=== PATIENT | male | born 1950 | race Caucasian/White ===

== ENCOUNTER 2016-07-18 09:00 | Emergency (ER) | payer BC ==
[2016-07-18] MEDS ORDERED: PROGRAF0.5 M1 PO (09:41)
[2016-07-18] MEDS ORDERED: VIBRAMYCIN100 M1 PO (09:42)
[2016-07-18] MEDS ORDERED: METAMUCIL0.52 G1 PO (09:42)
[2016-07-18] MEDS ORDERED: VITAMIN D32000 UNI3 PO (09:42)
[2016-07-18] MEDS ORDERED: METOPROLOL TART25 M1 PO (09:43)
[2016-07-18] MEDS ORDERED: PEPCID40 M1 PO (09:43)
[2016-07-18] MEDS ORDERED: LIPITOR40 M1 PO (09:44)
[2016-07-18] MEDS ORDERED: SINGULAIR10 M1 PO (09:44)
[2016-07-18] MEDS ORDERED: ARAVA20 M1 PO (09:44)
[2016-07-18] MEDS ORDERED: ALREX5 M1 EACH EYE (09:45)
[2016-07-18] MEDS ORDERED: PREDNISONE5 M1 PO (09:47)
[2016-07-18] MEDS ORDERED: PREDNISONE10 M1 PO (09:49)
[2016-07-18] MEDS ORDERED: SYMBICORT 160-1 PUFF INH (09:50)
[2016-07-18] MEDS ORDERED: COUMADIN5 M2 PO ×2 (09:51→09:52)
[2016-07-18 10:43] LABS: BASO % 0.1 % (0-2); EOS % 0.2 % (0-7); HCT-HEMATOCRIT 31.3 % (36.0-53.5); HGB-HEMOGLOBIN 9.9 gm/dl (13.5-17.0); IMMATURE GRANULOCYTES ABSOLUTE 0.12 tho/cmm (0-0.03); IMMATURE GRANULOCYTES PERCENT 0.8 % (0-0.3); LYMPH % 4.9 % (20-45); LYMPH ABSOLUTE COUNT 0.7 tho/cmm (0.8-4.5); MCH (MEAN CORPUSCULAR HGB) 31.7 pg (28.0-32.0); MCHC MEAN CORPUSCULAR HGB CONC 31.6 % (32.0-36.0); MCV (MEAN CELL VOLUME) 100.3 fl (82.0-96.0); MEAN PLATELET VOLUME 9.4 cmc (9.4-12.4); MONO % 14.3 % (0-12); MONOCYTE ABSOLUTE COUNT 2.1 tho/cmm (0.0-1.2); NEUTROPHIL ABSOLUTE COUNT 11.5 tho/cmm (1.6-8.0); NEUTROPHIL-AUTOMATED 11.5 tho/cmm (1.6-8.0); NEUTROPHILS % 79.7 % (40-80); PLATELET COUNT 404 tho/cmm (150-450); RED BLOOD COUNT 3.12 mil/cmm (4.40-5.70); RED CELL DISTRIBUTION WIDTH 14.6 % (12.4-16.4); WHITE BLOOD COUNT 14.4 tho/cmm (4.0-10.0)
[2016-07-18 10:54] LABS: ALB/GLOB RATIO 0.5 (0.8-2.0); ALBUMIN 2.3 g/dl (3.5-5.0); ALKALINE PHOSPHATASE 316 U/L (33-138); ALT/SGPT 22 U/L (12-78); ANION GAP 11 mmol/L (0-20); AST/SGOT 15 U/L (10-40); BILIRUBIN,TOTAL 0.5 mg/dl (0.0-1.5); BLOOD UREA NITROGEN 29 mg/dl (6-24); CALCIUM 9.6 mg/dl (8.5-10.5); CARBON DIOXIDE-VENOUS 27 mmol/L (22-32); CHLORIDE 108 mmol/l (96-110); CREATININE 1.13 mg/dl (0.60-1.30); GLUCOSE 88 mg/dL (70-110); POTASSIUM 4.3 mmol/L (3.7-5.1); SODIUM 142 mmol/L (135-145); eGFR VALUE FOR BLACK 80 mL/Min
[2016-07-18 11:26] LABS: PROTHROMBIN TIME 35.7 SECONDS (9.0-13.6)
== END 2016-07-18 12:06 ==
LOC: EDMED 09:00
PROVIDERS: Emergency Medicine
DX: S20.211A Contusion of right front wall of thorax, initial encounter (principal); S50.812A Abrasion of left forearm, initial encounter; R51 Headache; E78.00 Pure hypercholesterolemia, unspecified; N19 Unspecified kidney failure; Z86.718 Personal history of other venous thrombosis and embolism; Z94.0 Kidney transplant status; Z94.6 Bone transplant status; Z90.49 Acquired absence of other specified parts of digestive tract; W18.2XXA Fall in (into) shower or empty bathtub, initial encounter; Y92.009 Unspecified place in unspecified non-institutional (private) residence as the place of occurrence of the external cause

== ENCOUNTER 2016-07-22 14:34 | Inpatient (IN) | payer BC ==
[~2016-07-22 14:34] MED LIST: ALREX5 M1 EACH EYE; ARAVA20 M1 PO; COUMADIN5 M2 PO; LIPITOR40 M1 PO; METAMUCIL0.52 G1 PO; METOPROLOL TART25 M1 PO; PEPCID40 M1 PO; PREDNISONE10 M1 PO; PREDNISONE5 M1 PO; PROGRAF0.5 M1 PO; SINGULAIR10 M1 PO; SYMBICORT 160-1 PUFF INH; VIBRAMYCIN100 M1 PO; VITAMIN D32000 UNI3 PO
[2016-07-22 18:50] LABS: INR 3.2 INR (0.9-1.1); PROTHROMBIN TIME 38.7 SECONDS (9.0-13.6)
[2016-07-22 18:52] LABS: MAGNESIUM 1.9 mg/dl (1.8-2.6); PHOSPHOROUS 2.3 mg/dl (2.5-4.9)
[2016-07-23 06:08] LABS: HCT-HEMATOCRIT 27.2 % (36.0-53.5); HGB-HEMOGLOBIN 8.6 gm/dl (13.5-17.0); IMMATURE GRANULOCYTES ABSOLUTE 0.05 tho/cmm (0-0.03); IMMATURE GRANULOCYTES PERCENT 0.4 % (0-0.3); LYMPH % 4.8 % (20-45); LYMPH ABSOLUTE COUNT 0.6 tho/cmm (0.8-4.5); MCH (MEAN CORPUSCULAR HGB) 31.3 pg (28.0-32.0); MCHC MEAN CORPUSCULAR HGB CONC 31.6 % (32.0-36.0); MCV (MEAN CELL VOLUME) 98.9 fl (82.0-96.0); MEAN PLATELET VOLUME 9.2 cmc (9.4-12.4); MONOCYTE ABSOLUTE COUNT 0.5 tho/cmm (0.0-1.2); NEUTROPHILS % 90.8 % (40-80); PLATELET COUNT 329 tho/cmm (150-450); RED BLOOD COUNT 2.75 mil/cmm (4.40-5.70); RED CELL DISTRIBUTION WIDTH 14.8 % (12.4-16.4); WHITE BLOOD COUNT 12.1 tho/cmm (4.0-10.0)
[2016-07-23 06:12] LABS: INR 3.2 INR (0.9-1.1)
[2016-07-23 06:21] LABS: ANION GAP 13 mmol/L (0-20); BLOOD UREA NITROGEN 27 mg/dl (6-24); C-REACTIVE PROTEIN 9.4 mg/dl (0-0.9); CALCIUM 8.7 mg/dl (8.5-10.5); CARBON DIOXIDE-VENOUS 23 mmol/L (22-32); CHLORIDE 110 mmol/l (96-110); CREATININE 1.04 mg/dl (0.60-1.30); GLUCOSE 125 mg/dL (70-110); MAGNESIUM 1.9 mg/dl (1.8-2.6); POTASSIUM 4.6 mmol/L (3.7-5.1); SODIUM 141 mmol/L (135-145); eGFR VALUE FOR BLACK 88 mL/Min
[2016-07-23 08:37] LABS: ESR-ERYTHROCYTE SED RATE 39 mm/hr (0-20)
[2016-07-24 04:39] LABS: BASO % 0.1 % (0-2); HCT-HEMATOCRIT 25.8 % (36.0-53.5); IMMATURE GRANULOCYTES ABSOLUTE 0.11 tho/cmm (0-0.03); IMMATURE GRANULOCYTES PERCENT 0.6 % (0-0.3); LYMPH % 7.5 % (20-45); LYMPH ABSOLUTE COUNT 1.3 tho/cmm (0.8-4.5); MCH (MEAN CORPUSCULAR HGB) 30.8 pg (28.0-32.0); MCV (MEAN CELL VOLUME) 99.2 fl (82.0-96.0); MEAN PLATELET VOLUME 9.1 cmc (9.4-12.4); MONOCYTE ABSOLUTE COUNT 1.2 tho/cmm (0.0-1.2); NEUTROPHILS % 84.8 % (40-80); PLATELET COUNT 314 tho/cmm (150-450); RED CELL DISTRIBUTION WIDTH 14.8 % (12.4-16.4); WHITE BLOOD COUNT 17.6 tho/cmm (4.0-10.0)
[2016-07-24 04:49] LABS: INR 2.9 INR (0.9-1.1); PROTHROMBIN TIME 34.6 SECONDS (9.0-13.6)
[2016-07-24 05:00] LABS: ALB/GLOB RATIO 0.4 (0.8-2.0); ALBUMIN 1.7 g/dl (3.5-5.0); ALKALINE PHOSPHATASE 351 U/L (33-138); ALT/SGPT 13 U/L (12-78); ANION GAP 10 mmol/L (0-20); AST/SGOT 15 U/L (10-40); BILIRUBIN,TOTAL 0.2 mg/dl (0.0-1.5); BLOOD UREA NITROGEN 31 mg/dl (6-24); CALCIUM 8.5 mg/dl (8.5-10.5); CARBON DIOXIDE-VENOUS 24 mmol/L (22-32); CHLORIDE 112 mmol/l (96-110); CREATININE 1.05 mg/dl (0.60-1.30); GLUCOSE 98 mg/dL (70-110); POTASSIUM 4.3 mmol/L (3.7-5.1); SODIUM 142 mmol/L (135-145); eGFR VALUE FOR BLACK 87 mL/Min
[2016-07-24 06:57] LABS: URINE TOTAL PROTEIN-RANDOM 17.2 mg/dl (<11.8)
[2016-07-24 07:05] LABS: URINE PRT/CR RATIO 0.31 Ratio (0.0-0.20)
[2016-07-24] MEDS ORDERED: VALIUM10 M1 PO (14:24)
[2016-07-24] MEDS ORDERED: NORCO 5-325 TA1 EACH PO (14:24)
== END 2016-07-24 18:10 | DRG 103 ==
LOC: CAR1 14:34
PROVIDERS: Internal Medicine; Nurse Practitioner; ADMIT Hospitalist
PROC: 05HC33Z Insertion of Infusion Device into Left Basilic Vein, Percutaneous Approach (ICD-10-PCS; principal; 2016-07-22)
DX: R51 Headache (principal); D68.51 Activated protein C resistance; Z94.81 Bone marrow transplant status; Z94.0 Kidney transplant status; E88.09 Other disorders of plasma-protein metabolism, not elsewhere classified; D45 Polycythemia vera; I73.9 Peripheral vascular disease, unspecified; M89.9 Disorder of bone, unspecified; E78.5 Hyperlipidemia, unspecified; D64.9 Anemia, unspecified; Z86.14 Personal history of Methicillin resistant Staphylococcus aureus infection; Z85.51 Personal history of malignant neoplasm of bladder; Z86.718 Personal history of other venous thrombosis and embolism; Z96.642 Presence of left artificial hip joint; Z79.01 Long term (current) use of anticoagulants; Z79.899 Other long term (current) drug therapy
CPT/HCPCS: A9577; C1751; G8978-GP-CI; G8979-GP-CI; G8980-GP-CI; J7030; J7512; Q9967

== ENCOUNTER 2016-08-10 11:44 | Inpatient (IN) | payer BC ==
[~2016-08-10 11:44] MED LIST changes: +NORCO 5-325 TA1 EACH PO; +VALIUM10 M1 PO
[2016-08-10] MEDS ORDERED: ALBUTEROL2.5 MG/3 M INH (12:35)
[2016-08-10 13:11] LABS: BASO % 0.1 % (0-2); HCT-HEMATOCRIT 28.6 % (36.0-53.5); IMMATURE GRANULOCYTES PERCENT 1.8 % (0-0.3); LYMPH % 3.5 % (20-45); LYMPH ABSOLUTE COUNT 0.4 tho/cmm (0.8-4.5); MCH (MEAN CORPUSCULAR HGB) 30.3 pg (28.0-32.0); MCHC MEAN CORPUSCULAR HGB CONC 31.5 % (32.0-36.0); MCV (MEAN CELL VOLUME) 96.3 fl (82.0-96.0); MEAN PLATELET VOLUME 9.5 cmc (9.4-12.4); MONO % 7.6 % (0-12); MONOCYTE ABSOLUTE COUNT 0.9 tho/cmm (0.0-1.2); NEUTROPHIL ABSOLUTE COUNT 9.9 tho/cmm (1.6-8.0); NEUTROPHIL-AUTOMATED 9.9 tho/cmm (1.6-8.0); PLATELET COUNT 358 tho/cmm (150-450); RED BLOOD COUNT 2.97 mil/cmm (4.40-5.70); RED CELL DISTRIBUTION WIDTH 15.4 % (12.4-16.4); WHITE BLOOD COUNT 11.3 tho/cmm (4.0-10.0)
[2016-08-10 13:15] LABS: PROTHROMBIN TIME 61.5 SECONDS (9.0-13.6)
[2016-08-10 13:26] LABS: ALB/GLOB RATIO 0.3 (0.8-2.0); ALBUMIN 1.7 g/dl (3.5-5.0); ALT/SGPT 19 U/L (12-78); BILIRUBIN,TOTAL 0.4 mg/dl (0.0-1.5); BLOOD UREA NITROGEN 30 mg/dl (6-24); CALCIUM 9.1 mg/dl (8.5-10.5); CARBON DIOXIDE-VENOUS 24 mmol/L (22-32); CHLORIDE 101 mmol/l (96-110); CREATININE 1.17 mg/dl (0.60-1.30); GLUCOSE 170 mg/dL (70-110); SODIUM 136 mmol/L (135-145); eGFR VALUE FOR BLACK 76 mL/Min
[2016-08-10 13:27] LABS: ALKALINE PHOSPHATASE 588 U/L (33-138); ANION GAP 16 mmol/L (0-20); POTASSIUM 4.6 mmol/L (3.7-5.1)
[2016-08-10 13:28] LABS: AST/SGOT 27 U/L (10-40); MAGNESIUM 1.9 mg/dl (1.8-2.6)
[2016-08-10 13:33] LABS: ESR-ERYTHROCYTE SED RATE >140 mm/hr (0-20)
[2016-08-10 14:21] LABS: URINE BILIRUBIN NEGATIVE (NEG); URINE BLOOD MODERATE (NEG); URINE GLUCOSE (UA) NEGATIVE (NEG); URINE KETONE NEGATIVE (NEG); URINE LEUKOCYTE ESTERASE NEGATIVE (NEG); URINE NITRITE NEGATIVE (NEG); URINE PROTEIN SMALL (NEG)
[2016-08-10 14:22] LABS: URINE APPEARANCE CLEAR; URINE COLOR YELLOW
[2016-08-10 14:26] LABS: URINE RBC 20-25 /[HPF] (0-5)
[2016-08-10 14:27] LABS: URINE EPITHELIAL CELLS 0 /[HPF] (0-10); URINE WBC 0-1 /[HPF] (0-5)
[2016-08-10 22:07] LABS: FOLATE (FOLIC ACID) 16.4 ng/ml (3.20-20.00); TSH-THYROID STIMULATING HORM. 1.24 uIU/ml (0.40-3.80)
[2016-08-11 06:49] LABS: BASO % 0.1 % (0-2); EOS % 0.7 % (0-7); EOSINOPHIL ABSOLUTE COUNT 0.1 tho/cmm (0.0-0.7); HCT-HEMATOCRIT 27.3 % (36.0-53.5); HGB-HEMOGLOBIN 8.5 gm/dl (13.5-17.0); IMMATURE GRANULOCYTES ABSOLUTE 0.23 tho/cmm (0-0.03); IMMATURE GRANULOCYTES PERCENT 1.8 % (0-0.3); LYMPH % 8.4 % (20-45); LYMPH ABSOLUTE COUNT 1.1 tho/cmm (0.8-4.5); MCH (MEAN CORPUSCULAR HGB) 30.1 pg (28.0-32.0); MCHC MEAN CORPUSCULAR HGB CONC 31.1 % (32.0-36.0); MCV (MEAN CELL VOLUME) 96.8 fl (82.0-96.0); MEAN PLATELET VOLUME 9.4 cmc (9.4-12.4); MONO % 18.1 % (0-12); MONOCYTE ABSOLUTE COUNT 2.3 tho/cmm (0.0-1.2); NEUTROPHIL ABSOLUTE COUNT 8.9 tho/cmm (1.6-8.0); NEUTROPHIL-AUTOMATED 8.9 tho/cmm (1.6-8.0); NEUTROPHILS % 70.9 % (40-80); PLATELET COUNT 325 tho/cmm (150-450); RED BLOOD COUNT 2.82 mil/cmm (4.40-5.70); RED CELL DISTRIBUTION WIDTH 15.5 % (12.4-16.4); WHITE BLOOD COUNT 12.5 tho/cmm (4.0-10.0)
[2016-08-11 06:58] LABS: ANION GAP 13 mmol/L (0-20); BLOOD UREA NITROGEN 24 mg/dl (6-24); CALCIUM 9.1 mg/dl (8.5-10.5); CARBON DIOXIDE-VENOUS 26 mmol/L (22-32); CHLORIDE 103 mmol/l (96-110); CREATININE 0.97 mg/dl (0.60-1.30); POTASSIUM 4.3 mmol/L (3.7-5.1); SODIUM 138 mmol/L (135-145); eGFR VALUE FOR BLACK >90 mL/Min
[2016-08-11 07:09] LABS: GLUCOSE 80 mg/dL (70-110)
[2016-08-11 11:00] LABS: INR 1.7 INR (0.9-1.1)
[2016-08-11 11:01] LABS: INR 1.4 INR (0.9-1.1); PROTHROMBIN TIME 16.8 SECONDS (9.0-13.6)
[2016-08-11 11:03] LABS: PARTIAL THROMBOPLASTIN TIME 29 SECONDS (22-36)
[2016-08-12 05:57] LABS: INR 1.2 INR (0.9-1.1); PROTHROMBIN TIME 13.9 SECONDS (9.0-13.6)
[2016-08-12 06:00] LABS: BASO % 0.1 % (0-2); EOS % 0.3 % (0-7); HCT-HEMATOCRIT 27.4 % (36.0-53.5); HGB-HEMOGLOBIN 8.5 gm/dl (13.5-17.0); IMMATURE GRANULOCYTES ABSOLUTE 0.27 tho/cmm (0-0.03); IMMATURE GRANULOCYTES PERCENT 1.7 % (0-0.3); LYMPH % 7.5 % (20-45); LYMPH ABSOLUTE COUNT 1.2 tho/cmm (0.8-4.5); MCV (MEAN CELL VOLUME) 96.8 fl (82.0-96.0); MEAN PLATELET VOLUME 9.6 cmc (9.4-12.4); MONO % 16.5 % (0-12); MONOCYTE ABSOLUTE COUNT 2.6 tho/cmm (0.0-1.2); NEUTROPHIL ABSOLUTE COUNT 11.7 tho/cmm (1.6-8.0); NEUTROPHIL-AUTOMATED 11.7 tho/cmm (1.6-8.0); NEUTROPHILS % 73.9 % (40-80); PLATELET COUNT 314 tho/cmm (150-450); RED BLOOD COUNT 2.83 mil/cmm (4.40-5.70); RED CELL DISTRIBUTION WIDTH 15.5 % (12.4-16.4); WHITE BLOOD COUNT 15.8 tho/cmm (4.0-10.0)
[2016-08-12 06:10] LABS: ANION GAP 12 mmol/L (0-20); BLOOD UREA NITROGEN 26 mg/dl (6-24); CARBON DIOXIDE-VENOUS 23 mmol/L (22-32); CHLORIDE 109 mmol/l (96-110); CREATININE 0.93 mg/dl (0.60-1.30); FERRITIN 1169 ng/ml (22-388); GLUCOSE 96 mg/dL (70-110); POTASSIUM 4.1 mmol/L (3.7-5.1); SODIUM 140 mmol/L (135-145); eGFR VALUE FOR BLACK >90 mL/Min
[2016-08-12 06:17] LABS: IRON 24 ug/dl (49-181); IRON BINDING CAPACITY 148 ug/dl (250-450)
[2016-08-12 10:31] LABS: CSF GLUCOSE 64 mg/dl (40-75)
[2016-08-12 10:52] LABS: CSF APPEARANCE CLEAR (CLEAR); CSF COLOR COLORLESS (COLORLESS); CSF TUBE NUMBER CSF TUBE 1
[2016-08-12 12:37] LABS: CSF RBC CT 11 cmm (0); CSF WBC CT 2 cmm (0-10)
[2016-08-13 05:52] LABS: INR 1.3 INR (0.9-1.1); PROTHROMBIN TIME 15.4 SECONDS (9.0-13.6)
[2016-08-13] MEDS ORDERED: LOVENOX100 MG/1 M SC (10:57)
[2016-08-13] MEDS ORDERED: ULTRACET TABLE1 EACH PO (11:01)
[2016-08-13] MEDS ORDERED: ZOFRAN4 M2 PO (11:01)
== END 2016-08-13 11:46 | DRG 477 ==
LOC: EDMED 11:44 → EMR2 18:05 → CAR1 18:10
PROVIDERS: Internal Medicine Nephrology; Physician Assistant; Psychiatry & Neurology Neurology; ADMIT Family Medicine
PROC: 0QB33ZX Excision of Left Pelvic Bone, Percutaneous Approach, Diagnostic (ICD-10-PCS; principal; 2016-08-12)
PROC: 009U3ZX Drainage of Spinal Canal, Percutaneous Approach, Diagnostic (ICD-10-PCS; 2016-08-12)
PROC: B01BZZZ Fluoroscopy of Spinal Cord (ICD-10-PCS; 2016-08-12)
DX: C41.4 Malignant neoplasm of pelvic bones, sacrum and coccyx (principal); N18.6 End stage renal disease; I12.0 Hypertensive chronic kidney disease with stage 5 chronic kidney disease or end stage renal disease; D68.51 Activated protein C resistance; Z94.81 Bone marrow transplant status; Z94.0 Kidney transplant status; R51 Headache; R42 Dizziness and giddiness; R41.0 Disorientation, unspecified; I73.9 Peripheral vascular disease, unspecified; R79.1 Abnormal coagulation profile; D64.9 Anemia, unspecified; I95.1 Orthostatic hypotension; R53.1 Weakness; R11.0 Nausea; J45.909 Unspecified asthma, uncomplicated; E78.5 Hyperlipidemia, unspecified; R31.29 Other microscopic hematuria; E88.09 Other disorders of plasma-protein metabolism, not elsewhere classified; Z79.01 Long term (current) use of anticoagulants; Z79.52 Long term (current) use of systemic steroids; Z79.899 Other long term (current) drug therapy; Z91.048 Other nonmedicinal substance allergy status; Z86.14 Personal history of Methicillin resistant Staphylococcus aureus infection; Z85.51 Personal history of malignant neoplasm of bladder; Z85.828 Personal history of other malignant neoplasm of skin; Z86.718 Personal history of other venous thrombosis and embolism; Z90.81 Acquired absence of spleen; Z98.41 Cataract extraction status, right eye; Z98.42 Cataract extraction status, left eye; Z96.642 Presence of left artificial hip joint; Z98.890 Other specified postprocedural states
CPT/HCPCS: A9577; C1830; J1650; J2250; J2405; J3010; J3430; J7030; J7512